=== PATIENT | female | born 1965 | race Two or more races ===

== ENCOUNTER → 2018-01-06 | Emergency (ER) | payer OTHER ==
[~2018-01-06] VITALS: Ht 167.6 cm; Wt 83.9 kg
[~2018-01-06] MED LIST: BACTROBAN OINT22 GM TP; CLEOCIN HCL300 MG PO; FLONASE ALLERG9.9 ML NASAL; HIBICLENS118 ML TP; SYNTHROID50 MCG; ZITHROMAX500 MG PO
== END | disposition home or self-care (01) ==
LOC: ER 22:19
DX: J04.0 Acute laryngitis (principal)

== ENCOUNTER 2018-12-04 17:22 | Emergency (ER) | payer OTHER ==
[~2018-12-04] VITALS: Ht 170.2 cm; Wt 87.1 kg
== END 2018-12-04 23:24 | disposition home or self-care (01) ==
LOC: ER 17:22
DX: R50.9 Fever, unspecified (principal)

== ENCOUNTER 2019-01-19 08:34 | Emergency (ER) | payer OTHER ==
[~2019-01-19] VITALS: Ht 170.2 cm; Wt 83.9 kg
[2019-01-19] MEDS ORDERED: MIRALAX17 GM PO (12:53)
== END 2019-01-19 13:30 | disposition home or self-care (01) ==
LOC: ER 08:34
DX: K59.09 Other constipation (principal)

== ENCOUNTER 2020-05-14 07:22 | Emergency (ER) | payer OTHER ==
[~2020-05-14] VITALS: Ht 167.6 cm; Wt 90.7 kg
[~2020-05-14 07:22] MED LIST changes: +MIRALAX17 GM PO
[2020-05-14] MEDS ORDERED: NORFLEX100MG PO (11:51)
[2020-05-14] MEDS ORDERED: KETO10TA2 PO (11:51)
== END 2020-05-14 12:02 | disposition home or self-care (01) ==
LOC: ER 07:22
DX: M54.2 Cervicalgia (principal); Z20.828 Contact with and (suspected) exposure to other viral communicable diseases

== ENCOUNTER 2020-11-16 08:39 | Emergency (ER) | payer OTHER ==
[~2020-11-16] VITALS: Ht 167.6 cm; Wt 90.7 kg
[~2020-11-16 08:39] MED LIST changes: +KETO10TA2 PO; +NORFLEX100MG PO
[2020-11-16] MEDS ORDERED: LOSARTAN-HCTZ1 EAC2 PO (09:24)
== END 2020-11-16 11:21 | disposition home or self-care (01) ==
LOC: ER 08:39
DX: M62.830 Muscle spasm of back (principal)

== ENCOUNTER 2020-11-18 10:00 | Emergency (ER) | payer OTHER ==
[~2020-11-18] VITALS: Ht 167.6 cm; Wt 88.5 kg
[~2020-11-18 10:00] MED LIST changes: +LOSARTAN-HCTZ1 EAC2 PO
[2020-11-18] MEDS ORDERED: BUTALBIT-ACETA1 EACH PO (13:53)
[2020-11-18] MEDS ORDERED: DECADRON4 MG PO (13:53)
== END 2020-11-18 14:26 | disposition home or self-care (01) ==
LOC: ER 10:00
DX: G43.809 Other migraine, not intractable, without status migrainosus (principal); G44.89 Other headache syndrome; E23.6 Other disorders of pituitary gland; M54.2 Cervicalgia; M62.838 Other muscle spasm